=== PATIENT | male | born 1995 | race Caucasian/White ===

== ENCOUNTER 2017-06-14 18:31 | Emergency (ER) | payer BC ==
--- NOTE | 2017-06-14 18:40 | UC ---
HPI Febrile Illness - HPI Summary HPI Summary: 21 PRESENTS WITH COMPLAINS OF THE WORSE HEADACHE OF HIS LIFE I WILL SEND HIM TO THE ER TO RULE OUT SUBARACHNOID HEMORRHAGE. - History of Current Complaint Time Seen by Provider: 06/14/17 18:39 - Risk Factors Pseudomonas Risk Factors: Negative Serious Bacterial Infection Risk Factors: Negative - Allergy/Home Medications Allergies/Adverse Reactions: Allergies Allergy/AdvReac Type Severity Reaction Status Date / Time Penicillins Allergy Severe Anaphylatic Verified 06/14/17 20:12 Shock Home Medications: Home Medications Acetaminophen TAB* [Tylenol TAB*] 1,000 mg BID PRN 06/14/17 [History Confirmed 06/14/17] LevoCETirizine TAB (NF) [Xyzal TAB (NF)] 10 mg DAILY 06/14/17 [History Confirmed 06/14/17] PMH/Surg Hx/FS Hx/Imm Hx Previously Healthy: Yes Respiratory History: Reports: Hx Asthma - Mainly as child - Surgical History Surgery Procedure, Year, and Place: T & A, 7 sets of tubes in ears as a child Infectious Disease History: Denies: Hx Clostridium Difficile - Family History Known Family History: Positive: None, Other - no FMH conjunctivitis - Social History Alcohol Use: Weekly Alcohol Amount: One drink at most four nights a week Hx Substance Use: No Substance Use Type: Reports: None Hx Tobacco Use: Yes Smoking Status (MU): Never Smoked Tobacco Type: Smokeless Tobacco Amount Used/How Often: 1 can per day Length of Time of Smoking/Using Tobacco: began at 13 years Have You Smoked in the Last Year: Yes Review of Systems Constitutional: Negative Skin: Negative Eyes: Negative ENT: Negative, Sinus Congestion, Sinus Pain/Tenderness Respiratory: Negative Cardiovascular: Negative Gastrointestinal: Negative Genitourinary: Negative Motor: Negative Neurovascular: Negative Musculoskeletal: Negative Neurological: Headache Psychological: Negative All Other Systems Reviewed And Are Negative: Yes Physical Exam Triage Information Reviewed: Yes Eye Exam: Normal ENT: Positive: Nasal congestion, Nasal drainage Dental Exam: Normal Neck exam: Normal Neck: Positive: 1 Respiratory Exam: Normal Cardiovascular Exam: Normal Abdominal Exam: Normal Musculoskeletal Exam: Normal Neurological Exam: Normal Psychological Exam: Normal Skin Exam: Normal Course/Dx - Diagnoses Clinic Provider Diagnoses: SEVERE HEADACHE Discharge - Discharge Plan Condition: Guarded Disposition: AGAINST MEDICAL ADVICE Patient Education Materials: Acute Headache (ED) Referrals: Prudencio Ayoub MD [Primary Care Provider] - Additional Instructions: PLEASE GO TO ER TO ASSESS HEADACHE. REFUSED EMS
[2017-06-14 18:50] VITALS: BP 141/79
== END 2017-06-14 19:26 | disposition left against medical advice (07) ==
LOC: UCCORT 18:31
DX: R51 Headache (principal); J45.909 Unspecified asthma, uncomplicated; Z88.0 Allergy status to penicillin; F17.220 Nicotine dependence, chewing tobacco, uncomplicated
CPT/HCPCS: 87502; 99212; G0463

== ENCOUNTER 2017-06-14 20:02 | Emergency (ER) | payer BC ==
[2017-06-14] MEDS ORDERED: DOXYcycline CAP(*) 100 MG PO ONE (22:13)
--- NOTE | 2017-06-14 22:27 | ED ---
Headache - HPI Summary HPI Summary: Patient presents to the ED with CC of HORAN since this morning. He was seen at who sent him here for an evaluation. He states he awoke with a 8/10 HORAN with sinus pressure located over the maxillary sinus, the frontal sinus and throughout the temporal area. Denies history of migraines, but endorses strong history of sinusitis with pressure and HORAN. He states this is not the "worst of life" HORAN and is requesting antibiotics for his sinus pressure and HORAN. He denies excess stress, ocular tearing, photophobia, phonophobia, aura, visual disturbances, neck pain or stiffness, confusion, N/V or any trauma. He denies previous HORAN similar to this one. He states the HORAN was throbbing with pressure and improved with Tylenol and rest and worse while he was working. Patient is an EMT, lives alone, denies drug use or recent ETOH use. He takes no medications. Recent travel includes [place] last week but denies any symptoms after returning 4 days ago including fevers, sweats or chills. Patient had associated body aches today, which also resolved spontaneously after taking tylenol. Patient is allergic to penicillins. - History Of Current Complaint Chief Complaint: EDHeadache Stated Complaint: SENT FROM [facility]/HEADACHE Time Seen by Provider: 06/14/17 21:22 Hx Obtained From: Patient Onset/Duration: Sudden Onset, Started hours ago Initially Headache Was: Initial Pain Scale(0-10)= - 8, Moderate Currently Pain Is: Current Pain Scale(0-10)= - 4, Moderate Timing: Intermittent, Lasting:, Hours Character: Pressure, Typical Headache, Migraine Location of Headache: Temporal, Parietal Aggravating Factor: Nothing Allevating Factors: Medication Associated Signs And Symptoms: Sinus Pressure - Risk Factors SAH Risk Factors: Negative Meningitis Risk Factors: Negative SDH Risk Factors: Male Temporal Arteritis Risk Factors: - Allergies/Home Medications Allergies/Adverse Reactions: Allergies Allergy/AdvReac Type Severity Reaction Status Date / Time Penicillins Allergy Severe Anaphylatic Verified 06/14/17 20:12 Shock PMH/Surg Hx/FS Hx/Imm Hx Previously Healthy: Yes Respiratory History: Reports: Hx Asthma - Mainly as child - Surgical History Surgery Procedure, Year, and Place: T & A, 7 sets of tubes in ears as a child - Immunization History Hx Pertussis Vaccination: No Immunizations Up to Date: Unable to Obtain/Confirm Infectious Disease History: No Infectious Disease History: Denies: Hx Clostridium Difficile, Traveled Outside the [place] in Last 30 Days - Family History Known Family History: Positive: None, Other - no FMH conjunctivitis - Social History Occupation: Employed Full-time Lives: With Family Alcohol Use: Weekly Alcohol Amount: One drink at most four nights a week Hx Substance Use: No Substance Use Type: Reports: None Hx Tobacco Use: Yes Smoking Status (MU): Never Smoked Tobacco Type: Smokeless Tobacco Amount Used/How Often: 1 can per day Length of Time of Smoking/Using Tobacco: began at 13 years Have You Smoked in the Last Year: Yes Review of Systems Negative: Fever, Chills, Fatigue, Skin Diaphoresis Positive: Drainage. Negative: Photophobia, Blurred Vision ENT: Negative Negative: Ear Ache, Nasal Discharge Cardiovascular: Negative Respiratory: Negative Positive: no symptoms reported, see HPI Skin: Negative Positive: Headache Psychological: Normal All Other Systems Reviewed And Are Negative: Yes Physical Exam Triage Information Reviewed: Yes Vital Signs On Initial Exam: Initial Vitals Temp Pulse Resp BP Pulse Ox 98 F 76 16 144/85 100 06/14/17 20:13 06/14/17 20:13 06/14/17 20:13 06/14/17 20:13 06/14/17 20:13 Vital Signs Reviewed: Yes Appearance: Positive: Well-Appearing, Well-Nourished Skin: Positive: Warm, Skin Color Reflects Adequate Perfusion Head/Face: Positive: Normal Head/Face Inspection Eyes: Positive: EOMI, ANI, Conjunctiva Clear ENT: Positive: Hearing grossly normal, Pharynx normal, Nasal congestion, Nasal drainage, TMs normal Neck: Positive: Supple, No Lymphadenopathy Respiratory/Lung Sounds: Positive: Clear to Auscultation, Breath Sounds Present Musculoskeletal: Positive: Normal, Strength/ROM Intact Neurological: Positive: Speech Normal Psychiatric: Positive: Normal - [place] Coma Scale Coma Scale Total: 15 Diagnostics - Vital Signs Vital Signs Temp Pulse Resp BP Pulse Ox 06/14/17 20:13 98 F 76 16 144/85 100 - Laboratory Lab Statement: Any lab studies that have been ordered have been reviewed, and results considered in the medical decision making process. Headache Course/Dx - Course Course Of Treatment: Patient presents with HORAN since this morning, since resolved with tylenol. He was sent here by CC to r/o brain bleed. This was considered, however patient states the HORAN was not acute onset or worst of life. He denies any trauma or family history of brain tumors or bleeds. Denies blood thinners. Patient states he has a strong history of sinusitis and this feels similar. The difference between his sinusitis and this episode is the 8 HORAN. He tends to have a HORAN with sinusitis, but this was the worst he had with his sinus symptoms. This HORAN was not worst of life. Considered meningitis symptoms , but no fever, neck pain or photophobia. D/t recent travel, discussd possibility of viral etiology. Sinus pressure noted on exam, but no rhinnorhea or post nasal drip on exam. Patient requests antibiotics for his symptoms and is adamantely against a CT scan at this time. Risks and benefits of the scan were discussed with the patient and return precautions are given. He agrees to return for any worsening or changing HORAN. He is given doxycycline 100mg x 7 days per UTD for pen allergic patients. He is encouraged tylenol for any HORAN. - Diagnoses Differential Diagnosis/HQI/PQRI: Meningitis, Migraine, Sinus Headache Provider Diagnoses: Sinus headache Discharge - Discharge Plan Condition: Stable Disposition: HOME Prescriptions: DOXYcycline CAP(*) [DOXYcycline 100MG CAP(*)] 100 mg PO BID #14 cap Patient Education Materials: Sinusitis (ED), Warm Compress or Soak (ED) Referrals: Prudencio Ayoub MD [Primary Care Provider] - Additional Instructions: Ibuprofen 600mg three times daily as needed for pain Nasal saline sprays can be of benefit to sinusitis symptoms, these are over the counter. Drink plenty of fluids Doxycycline twice daily x 7 days If anything becomes worse, return to the ED immediately.
[2017-06-14 22:28] VITALS: BP 124/74
== END 2017-06-14 22:27 | disposition home or self-care (01) ==
LOC: ED 20:02
DX: R51 Headache (principal)
CPT/HCPCS: 99282; A9270-GY